=== PATIENT | female | born 1980 | race African-American/Black ===

== ENCOUNTER 2017-12-06 09:53 | Emergency (ER) | payer OTHER ==
[~2017-12-06] VITALS: Ht 165.1 cm; Wt 80.0 kg
[2017-12-06 09:56] VITALS: BP 130/79
[2017-12-06] MEDS ORDERED: HYDROCODONE/ACETAMINOPHEN 5/325MG TABLET PO ONE (11:15)
== END 2017-12-06 11:30 | disposition left against medical advice (07) ==
LOC: ER 09:53
DX: Z48.3 Aftercare following surgery for neoplasm (principal); N64.4 Mastodynia; R10.9 Unspecified abdominal pain; C50.912 Malignant neoplasm of unspecified site of left female breast; Z98.890 Other specified postprocedural states; R03.0 Elevated blood-pressure reading, without diagnosis of hypertension
CPT/HCPCS: 99283

== ENCOUNTER 2019-08-12 22:35 | Emergency (ER) | payer OTHER ==
[~2019-08-12] VITALS: Ht 157.5 cm; Wt 110.0 kg
[2019-08-13 00:46] LABS: BASOPHILS % 0.7 % (0.0-2.0); HEMOGLOBIN. 10.4 g/dL (12.0-16.0); MEAN PLATELET VOLUME 6.6 fl (7.4-10.4); RED BLOOD CELL COUNT 4.66 mill/uL (4.2-5.4)
[2019-08-13 00:50] LABS: EOSINOPHILS % 2.5 % (0.0-5.0); HEMATOCRIT. 32.6 % (36.0-48.0); LYMPHOCYTES % 31.7 % (20.0-50.0); MEAN CORPUSCULAR HEMOGLOBIN 22.4 pg (28.0-32.0); MEAN CORPUSCULAR VOLUME 69.8 fL (81.0-99.0); MONOCYTES % 6.1 % (2.0-8.0); PLATELET 468 x1000/uL (130-400); RED CELL DISTRIBUTION WIDTH 18.3 % (11.6-14.6)
[2019-08-13 00:50] LABS: CLARITY URINE CLEAR (CLEAR); COLOR URINE YELLOW (YELLOW); KETONES URINE NEGATIVE (NEGATIVE); LEUKOCYTE ESTERASE URINE NEGATIVE (NEGATIVE); NITRITE URINE NEGATIVE (NEGATIVE); OCCULT BLOOD URINE NEGATIVE (NEGATIVE); PH URINE 8.5 (4.5-8.0); PROTEIN URINE NEGATIVE (NEGATIVE); SPECIFIC GRAVITY URINE 1.014 (1.005-1.030); UROBILINOGEN URINE 0.2 E.U./dL (0.2-1.0)
[2019-08-13 00:54] LABS: CHLORIDE 109 mEq/L (98-107)
[2019-08-13 01:01] LABS: HCG SCREEN NEGATIVE
[2019-08-13 03:49] VITALS: BP 158/80
== END 2019-08-13 03:52 | disposition home or self-care (01) ==
LOC: ER 22:35
DX: R07.89 Other chest pain (principal); D64.9 Anemia, unspecified; I10 Essential (primary) hypertension; Z98.890 Other specified postprocedural states; Z90.10 Acquired absence of unspecified breast and nipple; R42 Dizziness and giddiness; R06.02 Shortness of breath
CPT/HCPCS: 36415; 71045; 80053; 81003; 81025; 83880; 84484; 84703; 85025; 93005; 99285

== ENCOUNTER 2020-03-20 10:59 | Emergency (ER) | payer OTHER ==
[~2020-03-20] VITALS: Ht 160 cm; Wt 110.0 kg
[2020-03-20] MEDS ORDERED: IBUPROFEN 600MG TABLET PO ONE (11:30)
[2020-03-20 11:45] VITALS: BP 155/100
== END 2020-03-20 11:49 | disposition home or self-care (01) ==
LOC: ER 10:59
DX: G44.209 Tension-type headache, unspecified, not intractable (principal)
CPT/HCPCS: 99282

== ENCOUNTER 2020-03-26 12:01 | Emergency (ER) | payer OTHER ==
[~2020-03-26] VITALS: Ht 157.5 cm; Wt 107.0 kg
[2020-03-26] MEDS ORDERED: HYDR12.54 PO (12:11)
[2020-03-26] MEDS ORDERED: IBUP-2029 PO (12:11)
[2020-03-26] MEDS ORDERED: ACETAMINOPHEN 325MG TABLET PO ONE (15:15)
[2020-03-26] MEDS ORDERED: BUTALBITAL/ACETAMINOPHEN/CAFFEINE 50/325/40MG TABLET PO ONE (15:15)
[2020-03-26] MEDS ORDERED: TRAMADOL 50MG TABLET PO ONE (15:15)
[2020-03-26 17:27] VITALS: BP 170/99
== END 2020-03-26 17:30 | disposition home or self-care (01) ==
LOC: ER 12:19
DX: R51.9 Headache, unspecified (principal); I10 Essential (primary) hypertension; Z98.890 Other specified postprocedural states
CPT/HCPCS: 93005; 99284

== ENCOUNTER 2022-01-19 01:27 | Emergency (ER) | payer OTHER ==
[~2022-01-19] VITALS: Ht 154.9 cm; Wt 120.0 kg
[~2022-01-19 01:27] MED LIST: HYDR12.54 PO; IBUP-2029 PO
[2022-01-19 04:04] LABS: BASOPHILS % 0.8 % (0.0-2.0); EOSINOPHILS % 2.6 % (0.0-5.0); HEMATOCRIT. 28.9 % (36.0-48.0); HEMOGLOBIN. 8.9 g/dL (12.0-16.0); LYMPHOCYTES % 42.4 % (20.0-50.0); MEAN CORPUSCULAR HEMOGLOBIN 19.6 pg (28.0-32.0); MEAN CORPUSCULAR VOLUME 63.7 fL (81.0-99.0); MEAN PLATELET VOLUME 6.3 fl (7.4-10.4); MONOCYTES % 6.9 % (2.0-8.0); NEUTROPHILS % 47.3 % (40.0-76.0); PLATELET 470 x1000/uL (130-400); RED BLOOD CELL COUNT 4.54 mill/uL (4.2-5.4); RED CELL DISTRIBUTION WIDTH 22.3 % (11.6-14.6)
[2022-01-19 04:11] LABS: CHLORIDE 106 mEq/L (98-107)
[2022-01-19 04:16] LABS: HCG SCREEN NEGATIVE
[2022-01-19 04:31] LABS: PLATELET ESTIMATE INCREASED
[2022-01-19 05:10] LABS: CLARITY URINE CLOUDY (CLEAR); COLOR URINE YELLOW (YELLOW); KETONES URINE NEGATIVE (NEGATIVE); LEUKOCYTE ESTERASE URINE NEGATIVE (NEGATIVE); NITRITE URINE NEGATIVE (NEGATIVE); OCCULT BLOOD URINE 3+ (NEGATIVE); PH URINE 5.5 (4.5-8.0); PROTEIN URINE NEGATIVE (NEGATIVE); SPECIFIC GRAVITY URINE 1.021 (1.005-1.030); UROBILINOGEN URINE 0.2 E.U./dL (0.2-1.0)
[2022-01-19] MEDS ORDERED: FERR324T4 MT (05:37)
[2022-01-19] MEDS ORDERED: ACET-2708 MT (05:37)
[2022-01-19 07:30] VITALS: BP 151/90
== END 2022-01-19 09:22 | disposition home or self-care (01) ==
LOC: ER 01:47
DX: N83.201 Unspecified ovarian cyst, right side (principal); N83.202 Unspecified ovarian cyst, left side; I10 Essential (primary) hypertension
CPT/HCPCS: 36415; 76830; 76856; 80053; 81003; 81025; 84703; 85025; 86850; 86900; 99284

== ENCOUNTER → 2023-10-30 | Outpatient (CLI) | payer BC, OTHER ==
[~2023-10-30] MED LIST changes: +ACET-2708 MT; +FERR324T4 MT
== END | disposition home or self-care (01) ==
LOC: CARD 07:45
PROVIDERS: ATTEND Internal Medicine Cardiovascular Disease
DX: Z01.810 Encounter for preprocedural cardiovascular examination (principal); I10 Essential (primary) hypertension; I51.7 Cardiomegaly
CPT/HCPCS: 93306

== ENCOUNTER 2024-02-16 11:12 | Emergency (ER) | payer BC ==
[~2024-02-16] VITALS: Ht 160 cm; Wt 96.0 kg
[2024-02-16 11:27] VITALS: O2SAT 99
[2024-02-16 12:04] LABS: BASOPHILS % 0.5 % (0.0-2.0); DIFFERENTIAL COMMENT 0; EOSINOPHILS % 2.4 % (0.0-5.0); HEMATOCRIT. 29.9 % (36.0-48.0); HEMOGLOBIN. 9.6 g/dL (12.0-16.0); LYMPHOCYTES % 45.8 % (20.0-50.0); MEAN CORPUSCULAR HEMOGLOBIN 22.7 pg (28.0-32.0); MEAN PLATELET VOLUME 7.2 fl (7.4-10.4); MONOCYTES % 6.3 % (2.0-8.0); PLATELET 468 x1000/uL (130-400); RED BLOOD CELL COUNT 4.21 mill/uL (4.2-5.4); RED CELL DISTRIBUTION WIDTH 19.5 % (11.6-14.6); WHITE BLOOD COUNT 5.1 x1000/uL (4.5-11.0)
[2024-02-16 12:21] LABS: CHLORIDE 105 mEq/L (98-107); SODIUM 140 mEq/L (136-145)
[2024-02-16 12:22] LABS: CALCIUM 9.2 mg/dL (8.7-10.4); CARBON DIOXIDE 27 mEq/L (21-32)
[2024-02-16 12:27] LABS: CREATININE 0.9 mg/dL (0.6-1.0); GLUCOSE 102 mg/dL (70-105); UREA NITROGEN BLOOD 5 mg/dL (9-23)
[2024-02-16 12:57] LABS: HCG SCREEN NEGATIVE
[2024-02-16 12:58] LABS: POTASSIUM 2.8 mEq/L (3.5-5.1)
[2024-02-16] MEDS ORDERED: POTA-205 MT (14:01)
[2024-02-16] MEDS ORDERED: MEDR10TA MT (14:02)
[2024-02-16] MEDS: POTASSIUM CHLORIDE 20MEQ/PACKET PO ONE (14:18)
[2024-02-16 15:00] VITALS: BP 132/78; PULSE 76; RESP 16; TEMP 37.00296; O2SAT 99
== END 2024-02-16 15:30 | disposition home or self-care (01) ==
LOC: ER 11:12
DX: N93.9 Abnormal uterine and vaginal bleeding, unspecified (principal); I10 Essential (primary) hypertension; Z79.899 Other long term (current) drug therapy
CPT/HCPCS: 36415; 76830; 76856; 80048; 84703; 85025; 86850; 86900; 99284